=== PATIENT | female | born 1945 | race Caucasian/White ===

== ENCOUNTER 2016-10-06 07:30 | Emergency (ER) | payer OTHER ==
[~2016-10-06] VITALS: Ht 160 cm; Wt 77.1 kg
[~2016-10-06 07:30] MED LIST: ALEN70TA PO; ENAL20TA46 PO; HYDR-4452 PO; LYR75 PO; SIMV20TA1 PO
[2016-10-06 07:39] VITALS: BP 154/89
--- NOTE | 2016-10-06 07:42 | NUR ---
Patient to bed 04.
--- NOTE | 2016-10-06 07:45 | NUR ---
PT PRESENTS TO ER W/C/O N/V/D X2 DAYS. HX HTN, HYPERLIPIDEMIA. DENIES N/V/D; SKIN IS PINK/WARM/DRY; AAOX4 WITH EVEN AND STEADY GAIT; LUNGS CLEAR BL; HR EVEN AND REGULAR; PT DENIES ANY FEVER, CP, SOB, OR COUGH AT THIS TIME; PATIENT STATES PAIN OF 8/10 AT THIS TIME; VSS; PATIENT POSITIONED FOR COMFORT; HOB ELEVATED; BEDRAILS UP X2; BED DOWN. ER MD MADE AWARE OF PT STATUS.
--- NOTE | 2016-10-06 07:48 | NUR ---
Dr. Ortiz evaluating patient at bedside.
[2016-10-06] MEDS ORDERED: NACL 0.9% 1,000 ML IV ONE (07:55)
[2016-10-06] MEDS ORDERED: ONDANSETRON 4 MG/2 ML VIAL IVP ONE (07:55)
[2016-10-06] MEDS ORDERED: MORPHINE SULFATE 4 MG/ML SYR IVP ONE (07:55)
--- NOTE | 2016-10-06 08:03 | NUR ---
XRAY at bedside.
[2016-10-06 08:36] LABS: BASOPHILS # (AUTO) 0.2 K/uL (0.00-0.22); BASOPHILS % (AUTO) 2.7 % (0.0-2.0); EOSINOPHILS # (AUTO) 0.1 K/uL (0-0.4); EOSINOPHILS % (AUTO) 1.2 % (0.0-4.0); HEMATOCRIT 42.1 % (36-48); HEMOGLOBIN 13.5 g/dL (12.0-16.0); LYMPHOCYTES # (AUTO) 0.9 K/uL (2.5-16.5); LYMPHOCYTES % (AUTO) 13.7 % (20.5-51.1); MEAN CORPUSCULAR HEMOGLOBIN 28 pg (27-31); MEAN CORPUSCULAR HGB CONC 32 g/dL (33-37); MEAN CORPUSCULAR VOLUME 86 fL (80-94); MONOCYTES # (AUTO) 0.9 K/uL (0.8-1.0); MONOCYTES % (AUTO) 13.5 % (1.7-9.3); NEUTROPHILS # (AUTO) 4.8 K/uL (1.8-7.7); NEUTROPHILS % (AUTO) 68.9 % (42.2-75.2); PLATELET COUNT (AUTO) 257 K/uL (140-450); RED BLOOD CELL COUNT(AUTO) 4.91 MIL/uL (4.20-5.40); RED CELL DISTRIBUTION WIDTH 13.5 % (11.6-13.7); WHITE BLOOD COUNT (AUTO) 6.9 K/uL (4.8-10.8)
--- NOTE | 2016-10-06 08:52 | NUR ---
AAO PT AMBULATES TO THE RESTROOM
[2016-10-06 08:57] LABS: ALBUMIN 3.5 g/dL (3.4-5.0); ANION GAP 14.4 (8-16); CREATININE 0.7 mg/dL (0.6-1.3); POTASSIUM 3.4 mmol/L (3.5-5.1); TOTAL BILIRUBIN 0.4 mg/dL (0.0-1.0)
[2016-10-06] MEDS ORDERED: POTASSIUM CHLORIDE 20% 40 MEQ/15 ML UDC PO ONE (09:10)
[2016-10-06] MEDS ORDERED: HYDROcodone/APAP 5/325 MG 1 TAB TAB PO ONE (10:00)
[2016-10-06 10:19] VITALS: BP 135/67
== END 2016-10-06 10:19 | disposition home or self-care (01) ==
LOC: MED 07:30
DX: A08.39 Other viral enteritis (principal); R19.7 Diarrhea, unspecified; I10 Essential (primary) hypertension; Z79.899 Other long term (current) drug therapy
CPT/HCPCS: 36415; 71010; 80053; 83690; 84443; 84484; 85025; 93005; 96374; 96375; 99285; J2270; J2405; J7030; Q0092

== ENCOUNTER 2017-02-10 11:10 | Inpatient (IN) | payer OTHER ==
[~2017-02-10] VITALS: Ht 160 cm; Wt 77.1 kg
[~2017-02-10 11:10] MED LIST changes: -HYDR-4452 PO; +[UNRECOGNIZED DRUG - CODE] PO
[2017-02-10 11:22] VITALS: BP 159/93
[2017-02-10] MEDS ORDERED: BEN10 PO (11:26)
[2017-02-10] MEDS ORDERED: DICYCLOMINE HCL LIQUID 20 MG, ALUMINUM HYD/MAG/SIMETHICONE 30 ML, LIDOCAINE VISCOUS 2% ... PO ONE ×3 (11:55)
[2017-02-10] MEDS ORDERED: ONDANSETRON 4 MG/2 ML VIAL IVP ONE ×2 (11:55→13:05)
[2017-02-10] MEDS ORDERED: NACL 0.9% 1,000 ML IV ONE (11:55)
[2017-02-10] MEDS ORDERED: MORPHINE SULFATE 4 MG/ML SYR IVP ONE ×2 (11:55→13:05)
[2017-02-10 12:01] LABS: BASOPHILS # (AUTO) 0.3 K/uL (0.00-0.22); BASOPHILS % (AUTO) 4.1 % (0.0-2.0); EOSINOPHILS # (AUTO) 0.2 K/uL (0-0.4); EOSINOPHILS % (AUTO) 2.4 % (0.0-4.0); HEMATOCRIT 42.4 % (36-48); HEMOGLOBIN 13.8 g/dL (12.0-16.0); LYMPHOCYTES # (AUTO) 1.8 K/uL (2.5-16.5); LYMPHOCYTES % (AUTO) 23.2 % (20.5-51.1); MEAN CORPUSCULAR HEMOGLOBIN 28 pg (27-31); MEAN CORPUSCULAR HGB CONC 33 g/dL (33-37); MEAN CORPUSCULAR VOLUME 86 fL (80-94); MONOCYTES # (AUTO) 0.6 K/uL (0.8-1.0); MONOCYTES % (AUTO) 8.2 % (1.7-9.3); NEUTROPHILS # (AUTO) 4.8 K/uL (1.8-7.7); NEUTROPHILS % (AUTO) 62.1 % (42.2-75.2); PLATELET COUNT (AUTO) 292 K/uL (140-450); RED BLOOD CELL COUNT(AUTO) 4.96 MIL/uL (4.20-5.40); RED CELL DISTRIBUTION WIDTH 13.3 % (11.6-13.7); WHITE BLOOD COUNT (AUTO) 7.7 K/uL (4.8-10.8)
[2017-02-10 12:05] LABS: APPEARANCE,URINE CLEAR (CLEAR); BILIRUBIN,URINE NEGATIVE (NEGATIVE); BLOOD, URINE 1+ (NEGATIVE); COLOR,URINE YELLOW (YELLOW); LEUKOCYTE ESTERASE ,URINE TRACE (NEGATIVE); NITRITE, URINE NEGATIVE (NEGATIVE); PH,URINE 5.5 (5.0-9.0); UGLUCOSE NEGATIVE (NEGATIVE)
[2017-02-10 12:16] LABS: ALBUMIN 3.7 g/dL (3.4-5.0); ANION GAP 12.5 (8-16); CARBON DIOXIDE 25.5 mmol/L (21-32); TOTAL BILIRUBIN 0.3 mg/dL (0.0-1.0)
[2017-02-10 12:17] LABS: RBC,URINE NONE SEEN /HPF (0-5); WBC,URINE 0-5 (RARE) /HPF (0-5)
[2017-02-10] MEDS ORDERED: ONDANSETRON 4 MG/2 ML VIAL IVP PRN (13:15)
[2017-02-10] MEDS ORDERED: NACL 0.9% 1,000 ML IV SCH (13:15)
[2017-02-10] MEDS ORDERED: ACETAMINOPHEN 325 MG TAB PO PRN (13:15)
[2017-02-10] MEDS ORDERED: BISACODYL 10 MG SUPP RC SCH (13:39)
[2017-02-10] MEDS ORDERED: DICYCLOMINE 10 MG CAP PO PRN (14:40)
[2017-02-10 14:43] VITALS: BP 119/73
[2017-02-10] MEDS ORDERED: FAMOTIDINE 20 MG TAB PO SCH (14:52)
[2017-02-10] MEDS ORDERED: PNEUMOCOCCAL VACCINE 23 MCG/0.5 ML VIAL IMVAC SCH (15:05)
[2017-02-10] MEDS ORDERED: INFLUENZA VIRUS VACCINE QUAD 0.5 ML SYR IMVAC SCH (15:05)
[2017-02-10 15:41] LABS: CHOL/HDL RATIO 3.3 (1-4.5)
[2017-02-10 15:46] LABS: PROTHROMBIN TIME 10.5 secs (10.8-13.4)
[2017-02-10 16:00] VITALS: BP 119/71
[2017-02-10] MEDS: CYCLOBENZAPRINE 10 MG TAB PO SCH (17:14)
[2017-02-10] MEDS: SUCRALFATE 1 GM TAB PO SCH ×2 (18:10→20:45)
[2017-02-10] MEDS: DICYCLOMINE HCL LIQUID 10 MG/5 ML UDC PO SCH ×2 (18:11→20:50)
[2017-02-10 20:00] VITALS: BP 97/59
[2017-02-10] MEDS: PREGABALIN 25 MG CAP PO SCH (20:46)
[2017-02-10] MEDS: ENALAPRIL 10 MG TAB PO SCH (20:48)
[2017-02-10] MEDS ORDERED: SIMVASTATIN 20 MG TAB PO SCH (21:00)
[2017-02-10] MEDS ORDERED: SODIUM PHOSPHATE 118 ML ENEM RC PRN (22:00)
[2017-02-10] MEDS: KETOROLAC 15 MG/ML VIAL IVP PRN (23:06)
[2017-02-11] VITALS: BP 135/83
[2017-02-11 04:00] VITALS: BP 110/66
[2017-02-11 07:54] LABS: BASOPHILS # (AUTO) 0.2 K/uL (0.00-0.22); BASOPHILS % (AUTO) 2.7 % (0.0-2.0); EOSINOPHILS # (AUTO) 0.1 K/uL (0-0.4); EOSINOPHILS % (AUTO) 1.9 % (0.0-4.0); HEMATOCRIT 40.9 % (36-48); HEMOGLOBIN 13.8 g/dL (12.0-16.0); LYMPHOCYTES # (AUTO) 1.7 K/uL (2.5-16.5); LYMPHOCYTES % (AUTO) 23.8 % (20.5-51.1); MEAN CORPUSCULAR HEMOGLOBIN 29 pg (27-31); MEAN CORPUSCULAR HGB CONC 34 g/dL (33-37); MEAN CORPUSCULAR VOLUME 86 fL (80-94); MONOCYTES # (AUTO) 0.6 K/uL (0.8-1.0); MONOCYTES % (AUTO) 8.7 % (1.7-9.3); NEUTROPHILS # (AUTO) 4.3 K/uL (1.8-7.7); NEUTROPHILS % (AUTO) 62.9 % (42.2-75.2); PLATELET COUNT (AUTO) 263 K/uL (140-450); RED BLOOD CELL COUNT(AUTO) 4.76 MIL/uL (4.20-5.40); RED CELL DISTRIBUTION WIDTH 13.1 % (11.6-13.7)
[2017-02-11 08:35] LABS: ANION GAP 14.1 (8-16); CARBON DIOXIDE 25.7 mmol/L (21-32); CREATININE 0.8 mg/dL (0.6-1.3); POTASSIUM 3.8 mmol/L (3.5-5.1)
[2017-02-11] MEDS: ENALAPRIL 10 MG TAB PO SCH (09:00)
[2017-02-11] MEDS: DICYCLOMINE HCL LIQUID 10 MG/5 ML UDC PO SCH (09:00)
[2017-02-11] MEDS: CYCLOBENZAPRINE 10 MG TAB PO SCH ×2 (09:00→14:16)
[2017-02-11] MEDS: SUCRALFATE 1 GM TAB PO SCH (09:00)
[2017-02-11] MEDS: KETOROLAC 15 MG/ML VIAL IVP PRN (09:00)
[2017-02-11] MEDS ORDERED: DOCUSATE 100 MG/10 ML UDC GT SCH (09:00)
[2017-02-11] MEDS: PREGABALIN 25 MG CAP PO SCH (09:00)
[2017-02-11] MEDS ORDERED: FAMOTIDINE 20 MG TAB PO SCH (09:00)
[2017-02-11] MEDS ORDERED: LACTOBACILLUS RHAMNOSUS GG 1 EACH CAP PO SCH (09:00)
[2017-02-11 09:13] LABS: WHITE BLOOD COUNT (AUTO) 6.9 K/uL (4.8-10.8)
[2017-02-11 12:00] VITALS: BP 136/78
[2017-02-11] MEDS ORDERED: ALUMINUM HYD/MAG/SIMETHICONE 30 ML UDC PO SCH (12:00)
[2017-02-11] MEDS ORDERED: fentaNYL 0.05 MG/ML VIAL ONE (12:46)
[2017-02-11] MEDS ORDERED: diphenhydrAMINE 50 MG/ML VIAL ONE (12:46)
[2017-02-11] MEDS ORDERED: MIDAZOLAM 2 MG/2 ML VIAL ONE (12:46)
[2017-02-11] MEDS ORDERED: MIDAZOLAM 2 MG/2 ML VIAL IVP ONE (14:00)
[2017-02-11] MEDS ORDERED: MAGNESIUM HYDROXIDE 2400 MG/30 ML UDC PO SCH (14:00)
[2017-02-11] MEDS ORDERED: fentaNYL 0.05 MG/ML VIAL IVP ONE (14:00)
[2017-02-11 16:00] VITALS: BP 120/68
[2017-02-11] MEDS ORDERED: AMITRIPTYLINE 10 MG TAB PO SCH (21:00)
[2017-02-12] MEDS ORDERED: SENNA 8.6 MG TAB PO SCH (09:00)
== END 2017-02-11 17:45 | disposition home or self-care (01) | DRG 392 ==
LOC: MED 11:10 → MTU 13:15 → MMU 02-11 06:27
PROVIDERS: ADMIT Family Medicine Sports Medicine; ATTEND Family Medicine Sports Medicine
PROC: 3E0234Z Introduction of Serum, Toxoid and Vaccine into Muscle, Percutaneous Approach (ICD-10-PCS; 2017-02-11)
PROC: 0DB98ZX Excision of Duodenum, Via Natural or Artificial Opening Endoscopic, Diagnostic (ICD-10-PCS; principal; 2017-02-11 12:45)
DX: K29.70 Gastritis, unspecified, without bleeding (principal); E78.5 Hyperlipidemia, unspecified; N39.0 Urinary tract infection, site not specified; K21.9 Gastro-esophageal reflux disease without esophagitis; K58.9 Irritable bowel syndrome, unspecified; I10 Essential (primary) hypertension; M79.7 Fibromyalgia; M54.5 Low back pain; F41.9 Anxiety disorder, unspecified; F32.9 Major depressive disorder, single episode, unspecified; M19.90 Unspecified osteoarthritis, unspecified site; G89.29 Other chronic pain; K44.9 Diaphragmatic hernia without obstruction or gangrene; K29.60 Other gastritis without bleeding; Z96.652 Presence of left artificial knee joint; Z90.710 Acquired absence of both cervix and uterus; Z23 Encounter for immunization
CPT/HCPCS: 36415; 70450; 71045; 80048; 80053; 81001; 81025; 82150; 82272; 83036; 83690; 83735; 83880; 84100; 84484; 85025; 85610; 85730; 86677; 87081; 90658; 90732; 93005; 96361; 96374; 96375; 99285; J0696; J1200; J1885; J2250; J2270; J2405; J3010; J7030; J7060

== ENCOUNTER 2018-01-01 08:36 | Emergency (ER) | payer OTHER ==
[~2018-01-01] VITALS: Ht 154.9 cm; Wt 72.6 kg
[~2018-01-01 08:36] MED LIST changes: -ALEN70TA PO; +BEN10 PO
--- NOTE | 2018-01-01 08:39 | NUR ---
PT AMBULATES TO BED 4
[2018-01-01 08:44] VITALS: BP 141/81
--- NOTE | 2018-01-01 08:45 | NUR ---
PATIENT PRESENTS TO ED WITH C/O CHEST PAIN AND SOB . PT STATES SHE HAS BEEN HAVING CHEST PAIN X5DAYS. PT ALSO REPORTS OF HAVING THICK GREENISH BROWN SPUTUM. PT STATES THAT SHE WAS TREATED FOR A KIDNEY INFECTION LAST WEEK. DENIES N/V/D; SKIN IS PINK/WARM/DRY; AAOX4 WITH EVEN AND STEADY GAIT; LUNGS CLEAR BL BUT DIMINISHED; HR EVEN AND REGULAR; PT DENIES ANY FEVER AT THIS TIME; PATIENT STATES PAIN OF 10/10 AT THIS TIME; VSS; PATIENT POSITIONED FOR COMFORT; HOB ELEVATED; BEDRAILS UP X2; BED DOWN. ER MD MADE AWARE OF PT STATUS.
--- NOTE | 2018-01-01 08:47 | NUR ---
Prashant schroeder in ED - 01/01/18 at 0847 by SD1 PT AMBULATED TO BED 4
--- NOTE | 2018-01-01 09:16 | NUR ---
instructed pt on giving sputum sample and fito hinson notified
[2018-01-01] MEDS ORDERED: AMPICILLIN/SULBACTAM 3 GM in NACL 0.9% 100 ML IV ONE (09:35)
[2018-01-01 09:36] LABS: BASOPHILS # (AUTO) 0.1 K/uL (0.00-0.22); BASOPHILS % (AUTO) 0.9 % (0.0-2.0); EOSINOPHILS # (AUTO) 0.1 K/uL (0-0.4); HEMOGLOBIN 14.1 g/dL (12.0-16.0); LYMPHOCYTES # (AUTO) 1.5 K/uL (2.5-16.5); LYMPHOCYTES % (AUTO) 22.3 % (20.5-51.1); MEAN CORPUSCULAR HEMOGLOBIN 29 pg (27-31); MEAN CORPUSCULAR HGB CONC 33 g/dL (33-37); MONOCYTES # (AUTO) 0.3 K/uL (0.8-1.0); NEUTROPHILS # (AUTO) 4.7 K/uL (1.8-7.7); NEUTROPHILS % (AUTO) 70.8 % (42.2-75.2); PLATELET COUNT (AUTO) 231 K/uL (140-450); RED BLOOD CELL COUNT(AUTO) 4.94 MIL/uL (4.20-5.40); RED CELL DISTRIBUTION WIDTH 13.7 % (11.6-13.7); WHITE BLOOD COUNT (AUTO) 6.6 K/uL (4.8-10.8)
[2018-01-01 09:49] LABS: ANION GAP 15.9 (8-16); CARBON DIOXIDE 23.7 mmol/L (21-32); POTASSIUM 3.6 mmol/L (3.5-5.1)
[2018-01-01 09:53] LABS: PROTHROMBIN TIME 9.9 secs (10.8-13.4)
[2018-01-01] MEDS ORDERED: AMPICILLIN/SULBACTAM 3 GM VIAL ONE (09:53)
[2018-01-01 09:55] LABS: ALBUMIN 3.7 g/dL (3.4-5.0); TOTAL BILIRUBIN 0.5 mg/dL (0.0-1.0)
[2018-01-01 10:11] LABS: APPEARANCE,URINE CLEAR (CLEAR); COLOR,URINE YELLOW (YELLOW); PH,URINE 6.5 (5.0-9.0); UGLUCOSE NEGATIVE (NEGATIVE)
[2018-01-01 10:12] LABS: BILIRUBIN,URINE NEGATIVE (NEGATIVE); BLOOD, URINE TRACE (NEGATIVE); LEUKOCYTE ESTERASE ,URINE TRACE (NEGATIVE); NITRITE, URINE NEGATIVE (NEGATIVE)
[2018-01-01 10:14] LABS: RBC,URINE 0-5 (RARE) /HPF (0-5); WBC,URINE 0-5 (RARE) /HPF (0-5)
--- NOTE | 2018-01-01 10:37 | NUR ---
PATIENT TAKEN FOR CT
[2018-01-01] MEDS ORDERED: NACL 0.9% IV ONE (10:55)
--- NOTE | 2018-01-01 10:55 | NUR ---
PT RETURNED FROM CT
[2018-01-01 11:48] VITALS: BP 109/74
--- NOTE | 2018-01-01 11:48 | NUR ---
Patient discharged BY DR PENA. Written and verbal after care instructions given and explained. Patient alert, oriented and verbalized understanding of instructions. Ambulatory with steady gait. All questions addressed prior to discharge. ID band removed. Patient advised to follow up with PMD. Rx of PROMETHAZINE AND LEVAQUIN GIVEN. Patient educated on indication of medication including possible reaction and side effects. Opportunity to ask questions provided and answered.
== END 2018-01-01 11:48 | disposition home or self-care (01) ==
LOC: MED 08:36
DX: J20.9 Acute bronchitis, unspecified (principal); I10 Essential (primary) hypertension; F41.9 Anxiety disorder, unspecified; Z90.710 Acquired absence of both cervix and uterus; Z79.899 Other long term (current) drug therapy
CPT/HCPCS: 36415; 36600; 71045; 71275; 80053; 81001; 82803; 83605; 85025; 85379; 85610; 85730; 87040; 87086; 96365; 99284; J0295; J7030; Q9967

== ENCOUNTER 2018-05-19 12:09 | Emergency (ER) | payer OTHER ==
[~2018-05-19] VITALS: Ht 154.9 cm; Wt 77.1 kg
[2018-05-19 12:45] VITALS: BP 117/68
--- NOTE | 2018-05-19 12:54 | NUR ---
PATIENT WHEELCHAIR ASSISTED TO BED 2 AT THIS TIME.
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
--- NOTE | 2018-05-19 13:24 | NUR ---
PT BEING TAKEN TO CT
[2018-05-19] MEDS ORDERED: ONDANSETRON 4 MG ODT PO ONE (14:00)
[2018-05-19] MEDS ORDERED: MORPHINE SULFATE 4 MG/ML SYR IM ONE (14:00)
--- NOTE | 2018-05-19 14:30 | NUR ---
PT PLACED ON 3 L NC, 02 NOW AT 95
[2018-05-19 15:53] VITALS: BP 142/76
--- NOTE | 2018-05-19 15:55 | NUR ---
Patient discharged with v/s stable. Written and verbal after care instructions given and explained. Patient alert, oriented and verbalized understanding of instructions. Wheel Chair Assisted with to car. All questions addressed prior to discharge. ID band removed. Patient advised to follow up with PMD. PRESCRIPTIONS WERE GIVEN TO PT. Patient educated on indication of medication including possible reaction and side effects. Opportunity to ask questions provided and answered.
== END 2018-05-19 15:55 | disposition home or self-care (01) ==
LOC: MED 12:09
DX: S00.93XA Contusion of unspecified part of head, initial encounter (principal); M25.561 Pain in right knee; M81.0 Age-related osteoporosis without current pathological fracture; I10 Essential (primary) hypertension; E78.00 Pure hypercholesterolemia, unspecified; Z90.710 Acquired absence of both cervix and uterus; Z79.891 Long term (current) use of opiate analgesic; Z79.899 Other long term (current) drug therapy; W01.0XXA Fall on same level from slipping, tripping and stumbling without subsequent striking against object, initial encounter; Y93.H2 Activity, gardening and landscaping; Y92.096 Garden or yard of other non-institutional residence as the place of occurrence of the external cause; Y99.8 Other external cause status
CPT/HCPCS: 70450; 70486; 71045; 71250; 72125; 73562; 74176; 96372; 99284; J2270; Q0092; Q0162

== ENCOUNTER 2018-12-20 09:18 | Inpatient (IN) | payer OTHER ==
[~2018-12-20] VITALS: Ht 157.5 cm; Wt 77.6 kg
[2018-12-20 09:27] VITALS: BP 138/75
--- NOTE | 2018-12-20 09:45 | NUR ---
PT STATES SHE WOULD LIKE TO BE EVALUATED TO SEE IF SHE HAD AN NV LAST NIGHT. SHE STATES SHE WOKE UP AT 230 WITH "EXCRUTIATING" PAIN IN HER CHEST THAT RADIATED TO HER L UPPER BACK. PT ALSO REPORTS DIAPHORESIS AT THAT TIME. DENIES N/V. PT TOOK 1 SUBLINGUAL NITROGLYCERINE TABLET AND 1 BABY ASPIRIN 81MG. PT STATES SHE HAS SHARP INTERMITTENT CHEST PAIN NOW. LUNG SOUNDS CLEAR ALL THROUGHOUT. NO RESP DISTRESS NOTED. SPO2 100% RA. HEART SOUNDS S1S2 PRESENT. PT DENIES PAIN AT THIS TIME. VSS. HX: HTN, ANXIETY, NEURALGIA RX: SEE MED REC.
--- NOTE | 2018-12-20 09:48 | NUR ---
LAB AND XR AT BEDSIDE.
[2018-12-20 09:55] LABS: BASOPHILS # (AUTO) 0.1 K/uL (0.00-0.22); EOSINOPHILS # (AUTO) 0.1 K/uL (0-0.4); EOSINOPHILS % (AUTO) 1.2 % (0.0-4.0); HEMATOCRIT 41.7 % (36-48); HEMOGLOBIN 13.8 g/dL (12.0-16.0); LYMPHOCYTES # (AUTO) 1.5 K/uL (2.5-16.5); LYMPHOCYTES % (AUTO) 21.5 % (20.5-51.1); MEAN CORPUSCULAR HEMOGLOBIN 30 pg (27-31); MEAN CORPUSCULAR HGB CONC 33 g/dL (33-37); MEAN CORPUSCULAR VOLUME 89.4 fL (80-94); MONOCYTES # (AUTO) 0.5 K/uL (0.8-1.0); MONOCYTES % (AUTO) 7.4 % (1.7-9.3); NEUTROPHILS # (AUTO) 4.7 K/uL (1.8-7.7); NEUTROPHILS % (AUTO) 68.9 % (42.2-75.2); PLATELET COUNT (AUTO) 284 K/uL (140-450); RED BLOOD CELL COUNT(AUTO) 4.67 MIL/uL (4.20-5.40); RED CELL DISTRIBUTION WIDTH 14.4 % (11.6-13.7); WHITE BLOOD COUNT (AUTO) 6.9 K/uL (4.8-10.8)
[2018-12-20 10:07] LABS: CHLORIDE 100 mmol/L (98-107); CREATININE 0.8 mg/dL (0.6-1.3); GLUCOSE 105 mg/dL (74-106); SODIUM SERUM 138 mmol/L (136-145); UREA NITROGEN, BLOOD 13 mg/dL (7-18)
[2018-12-20 10:12] LABS: ALBUMIN 3.8 g/dL (3.4-5.0); ASPARTATE AMINOTRANSFERASE 16 U/L (15-37); TOTAL BILIRUBIN 0.3 mg/dL (0.0-1.0)
[2018-12-20] MEDS ORDERED: ACETAMINOPHEN 325 MG TAB PO PRN (11:00)
[2018-12-20] MEDS ORDERED: DOCUSATE SODIUM 100 MG GELCAP PO PRN (11:00)
[2018-12-20] MEDS ORDERED: NACL 0.9% 1,000 ML IV SCH (11:00)
[2018-12-20] MEDS ORDERED: ONDANSETRON 4 MG/2 ML VIAL IM/IVP PRN (11:00)
[2018-12-20] MEDS ORDERED: MORPHINE SULFATE 2 MG/ML SYR IVP PRN (11:00)
[2018-12-20] MEDS ORDERED: LOSA100T1 PO (11:05)
[2018-12-20] MEDS ORDERED: TRAZ-343 PO (11:05)
[2018-12-20] MEDS ORDERED: ACET-512 PO (11:05)
[2018-12-20] MEDS ORDERED: AMLO5TAB PO (11:05)
[2018-12-20] MEDS ORDERED: ASPI-1718 PO (11:05)
[2018-12-20] MEDS ORDERED: BACL10TA4 PO (11:05)
[2018-12-20] MEDS ORDERED: PREG150C PO (11:05)
--- NOTE | 2018-12-20 11:13 | NUR ---
JOVANY (SON) CONTACT: [phone] HOME PHONE: [phone]
[2018-12-20] MEDS ORDERED: NITROGLYCERIN 0.4 MG TAB SL PRN (11:25)
[2018-12-20 11:30] VITALS: BP 137/80
--- NOTE | 2018-12-20 11:30 | NUR ---
Pt admitted to room 127B from ED via gurney. Pt able to amb from gurney to bed with steady gait & good safety awareness. Report received from ED nurse Ventura. Pt aaox4, no c/o discomfort at this time, no c/o chest pain. Pt oriented to room & unit, verbalized understanding & able to return demonstrate teachings. Right hand IV 22G saline locked, intact & asymptomatic. Call light within reach. Pt's arrived with pt & remains at bedside.
[2018-12-20 11:34] LABS: BILIRUBIN,URINE NEGATIVE (NEGATIVE); BLOOD, URINE NEGATIVE (NEGATIVE); COLOR,URINE YELLOW (YELLOW); LEUKOCYTE ESTERASE ,URINE 2+ (NEGATIVE); NITRITE, URINE NEGATIVE (NEGATIVE); PH,URINE 6.5 (5.0-9.0); UGLUCOSE NEGATIVE (NEGATIVE)
--- NOTE | 2018-12-20 11:36 | NUR ---
Patient will be admitted to care of DR. DE LA ROSA. Admited to TELE. Will go to room 127B. Belongings list completed. Report to VIKTORIYA ORTEZ.
[2018-12-20 11:47] LABS: MAGNESIUM 1.8 mg/dL (1.8-2.4); PHOSPHORUS 3.4 mg/dL (2.5-4.9); THYROID STIMULATING HORMONE 2.51 uIU/mL (0.34-3.74)
[2018-12-20 11:52] LABS: APPEARANCE,URINE CLEAR (CLEAR)
[2018-12-20] MEDS: HYDROcodone/APAP 5/325 MG 1 TAB TAB PO PRN ×2 (14:16→22:34)
--- NOTE | 2018-12-20 15:27 | NUR ---
PATIENT HAS BEEN SCREENED AND CATEGORIZED MODERATE NUTRITION RISK. PATIENT WILL BE SEEN WITHIN 3-5 DAYS OF ADMISSION. 12/22/18 12/24/[address]
[2018-12-20 16:00] VITALS: BP 125/73
--- NOTE | 2018-12-20 19:15 | NUR ---
Report given to pm nurse Nury. Pt resting in bed, no signs of distress.
--- NOTE | 2018-12-20 19:15 | NUR ---
RECEIVED BEDSIDE REPORT FROM DAY SHIFT NURSE. PATIENT IS AWAKE, ALERT, AND COOPERATIVE. RESPIRATION EVEN UNLABORED ON ROOM AIR. NO DISTRESS NOTED. SKIN IS WARM AND DRY. IV PATENT AND INTACT. DENIES PAIN. PLAN OF CARE WAS DISCUSSED. ALL SAFETY MEASURES IN PLACE. BED IS AT LOW POSITION. CALL LIGHT WITHIN REACH AND VERBALIZES ITS USE. WILL CONTINUE TO MONITOR.
[2018-12-20 20:00] VITALS: BP 124/75
[2018-12-20] MEDS ORDERED: diphenhydrAMINE 50 MG/ML VIAL IVP SCH (20:00)
--- NOTE | 2018-12-20 20:05 | NUR ---
INITIAL ASSESSMENT DONE. VITALS WERE TAKEN. PATIENT COMPLAINING OF BURNING AND ITCHING SENSATION FROM THE TELE TAPE. CHECKED PATIENT SKIN NO HIVES, REDNESS, OR DIFFICULTY OF BREATHING NOTED. WILL NOTIFY .
--- NOTE | 2018-12-20 20:15 | NUR ---
PATIENT IV INFILTRATED. START NEW LINE LEFT FOREARM 20 G. TOLERATED IT WELL.
[2018-12-20] MEDS ORDERED: HYDROCORTISONE 2.5% OINT 30 GM TUBE TP PRN (20:30)
--- NOTE | 2018-12-20 20:30 | NUR ---
BENADRYL ADMINISTERED PER ORDER FOR ITCHINESS. ALL SCHEDULED MEDS WERE GIVEN PER ORDER. WILL CONTINUE TO MONITOR.
[2018-12-20] MEDS ORDERED: ATORVASTATIN 20 MG TAB PO SCH (21:00)
[2018-12-20] MEDS ORDERED: METOPROLOL 25 MG TAB PO SCH (21:00)
[2018-12-20] MEDS ORDERED: traZODone 50 MG TAB PO SCH (21:00)
--- NOTE | 2018-12-20 22:34 | NUR ---
PATIENT COMPLAINED OF GENERALIZED PAIN 6/10. PRN PAIN MED ADMINISTERED PER ORDER. WILL CONTINUE TO MONITOR
--- NOTE | 2018-12-20 23:25 | NUR ---
CHECKED ON PATIENT. PATIENT SLEEPING RESPIRATION EVEN UNLABORED ON ROOM AIR. NO DISTRESS NOTED. WILL CONTINUE TO MONITOR.
[2018-12-21] VITALS: BP 122/64
--- NOTE | 2018-12-21 00:20 | NUR ---
VITALS WERE TAKEN. PATIENT IN STABLE CONDITION. NO DISTRESS NOTED. WILL CONTINUE TO MONITOR.
[2018-12-21] MEDS ORDERED: ZOLPIDEM 5 MG TAB PO SCH (02:30)
--- NOTE | 2018-12-21 02:34 | NUR ---
PATIENT ASKING FOR ANOTHER SLEEPING AID. PER PATIENT STATED SHE IS RESTLESS AND CANT FALL ASLEEP FOR TOO LONG. PRN AMBIEN GIVEN PER ORDER. WILL CONTINUE TO MONITOR
[2018-12-21 04:00] VITALS: BP 121/58
--- NOTE | 2018-12-21 05:45 | NUR ---
PATIENT NEED NEW IV IN THE AC AREA FOR CT ANGIO WITH CONTRAST. PATIENT WAS POKE SEVERAL TIMES DUE TO HER LIMITED VEINS. PATIENT GOT UPSET AND STATED THAT IF SHE GOT POKE ONE MORE TIME SHE'LL GO HOME.
--- NOTE | 2018-12-21 05:55 | NUR ---
EXPLAINED TO THE PATIENT THE RISK AND BENEFITS X2 STILL REFUSED.
--- NOTE | 2018-12-21 06:00 | NUR ---
PATIENT REFUSED BEING POKE AGAIN FOR IV.
--- NOTE | 2018-12-21 06:05 | NUR ---
PATIENT WAS UPSET. WANTS TO SIGNED AMA. DR. MONTENEGRO SPOKE WITH THE PATIENT AND EXPLAINED AMA.
--- NOTE | 2018-12-21 06:20 | NUR ---
PATIENT SIGNED AMA PAPERWORK, AWAITING FOR HER MOLD CLEANER.
[2018-12-21 06:40] LABS: CARBON DIOXIDE 27.9 mmol/L (21-32); CHLORIDE 105 mmol/L (98-107); CREATININE 0.6 mg/dL (0.6-1.3); GLUCOSE 100 mg/dL (74-106); POTASSIUM 3.9 mmol/L (3.5-5.1); SODIUM SERUM 140 mmol/L (136-145); UREA NITROGEN, BLOOD 14 mg/dL (7-18)
[2018-12-21 06:48] LABS: CHOL/HDL RATIO 3.9 (1-4.5)
[2018-12-21 06:53] LABS: BASOPHILS % (AUTO) 0.7 % (0.0-2.0); EOSINOPHILS # (AUTO) 0.1 K/uL (0-0.4); EOSINOPHILS % (AUTO) 1.4 % (0.0-4.0); HEMATOCRIT 39.8 % (36-48); HEMOGLOBIN 13.2 g/dL (12.0-16.0); LYMPHOCYTES # (AUTO) 1.7 K/uL (2.5-16.5); LYMPHOCYTES % (AUTO) 32.3 % (20.5-51.1); MEAN CORPUSCULAR HEMOGLOBIN 30 pg (27-31); MEAN CORPUSCULAR HGB CONC 33 g/dL (33-37); MEAN CORPUSCULAR VOLUME 88.9 fL (80-94); MONOCYTES # (AUTO) 0.5 K/uL (0.8-1.0); MONOCYTES % (AUTO) 9.1 % (1.7-9.3); NEUTROPHILS # (AUTO) 2.9 K/uL (1.8-7.7); NEUTROPHILS % (AUTO) 56.5 % (42.2-75.2); PLATELET COUNT (AUTO) 253 K/uL (140-450); RED BLOOD CELL COUNT(AUTO) 4.47 MIL/uL (4.20-5.40); RED CELL DISTRIBUTION WIDTH 14.1 % (11.6-13.7); WHITE BLOOD COUNT (AUTO) 5.2 K/uL (4.8-10.8)
--- NOTE | 2018-12-21 07:02 | NUR ---
PATIENT LEFT THE FACILITY WITH SON AND HER BELONGINGS
[2018-12-21] MEDS ORDERED: ASPIRIN 81 MG TAB.CHEW PO SCH (09:00)
[2018-12-21] MEDS ORDERED: amLODIPine 5 MG TAB PO SCH (09:00)
[2018-12-21] MEDS ORDERED: PREGABALIN 50 MG CAP PO SCH (09:00)
[2018-12-21] MEDS ORDERED: LACTOBACILLUS RHAMNOSUS GG 1 EACH CAP PO SCH (09:00)
[2018-12-21] MEDS ORDERED: LOSARTAN 50 MG TAB PO SCH (09:00)
== END 2018-12-21 07:05 | disposition left against medical advice (07) | DRG 205 ==
LOC: MED 09:18 → MMU 11:04
PROVIDERS: ADMIT General Practice; ATTEND General Practice
DX: M94.0 Chondrocostal junction syndrome [Tietze] (principal); I71.00 Dissection of unspecified site of aorta; I24.9 Acute ischemic heart disease, unspecified; I10 Essential (primary) hypertension; E78.00 Pure hypercholesterolemia, unspecified; E78.5 Hyperlipidemia, unspecified; G89.29 Other chronic pain; M79.7 Fibromyalgia; K21.9 Gastro-esophageal reflux disease without esophagitis; Z96.652 Presence of left artificial knee joint; F41.8 Other specified anxiety disorders; M19.90 Unspecified osteoarthritis, unspecified site; Z53.29 Procedure and treatment not carried out because of patient's decision for other reasons; Z79.899 Other long term (current) drug therapy; Z90.710 Acquired absence of both cervix and uterus; Z83.3 Family history of diabetes mellitus; Z82.49 Family history of ischemic heart disease and other diseases of the circulatory system
CPT/HCPCS: 36415; 71045; 80048; 80053; 81001; 83690; 83735; 83880; 84100; 84443; 84484; 85025; 85610; 85730; 87081; 87086; 93005; 99285; J0696; J1200; J2270; J7030; J7060; Q0092